=== PATIENT | male | born 1940 | race Caucasian/White ===

== ENCOUNTER 2018-03-21 10:54 | Observation (INO) | payer MEDICARE ==
[2018-03-21 11:27] LABS: Hematocrit 41 % (42-52); Hemoglobin 13.7 g/dl (14.0-18.0); Mean Corpuscular HGB Conc 33 g/dl (31-36); Mean Corpuscular Hemoglobin 30 pg (27-31); Mean Corpuscular Volume 91 fL (80-94); Platelet Count 141 10^3/ul (150-450); Red Blood Count 4.52 10^6/ul (4.00-5.40); Red Cell Distribution Width 14 % (10.5-15); White Blood Count 11.2 10^3/ul (3.5-10.8)
[2018-03-21] MEDS ORDERED: NS 0.9% 1000 ML* 1,000 ML IV ONE ×2 (11:35→18:37)
[2018-03-21 11:42] LABS: EGFR Non-African American 82.7 (>60)
--- NOTE | 2018-03-21 12:10 | ED ---
Abdominal Pain/Male - HPI Summary HPI Summary: This patient is a 78 year old M presenting to [facility] with a chief complaint of epigastric abdominal pain since 04:30. The patient reports that he took a pepsid but later vomited it up. The patient rates the pain 2/10 in severity. Symptoms aggravated by nothing. Symptoms alleviated by nothing. Patient reports nausea, watery diarrhea, vomiting, lightheadedness, chills. Patient denies fever or changes to diet. Patient denies being around anyone who is sick. Patient notes he had lymphoma and a tumor removed from his abdomen in 2011. - History of Current Complaint Chief Complaint: EDZoieuseaVomitFemi Stated Complaint: VOMITING/DIARRHEA Time Seen by Provider: 03/21/18 11:35 Hx Obtained From: Patient Onset/Duration: Sudden Onset, Lasting Hours - 7 hours, Still Present Timing: Constant Severity Initially: Mild Severity Currently: Mild Pain Intensity: 2 Pain Scale Used: 0-10 Numeric Location: Epigastric Radiates: No Aggravating Factor(s): Nothing Alleviating Factor(s): Nothing Associated Signs And Symptoms: Positive: Nausea, Vomiting, Diarrhea. 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 LEFT ELBOW SURGERY Infectious Disease History: No Infectious Disease History: Denies: Traveled Outside the [place] in Last 30 Days - Family History Known Family History: Positive: Hypertension - Social History Alcohol Use: Occasionally Substance Use Type: Reports: None Smoking Status (MU): Former Smoker Review of Systems Positive: Chills. Negative: Fever Negative: Erythema Negative: Sore Throat Negative: Chest Pain Negative: Shortness Of Breath, Cough Positive: Abdominal Pain, Vomiting, Diarrhea, Nausea Negative: dysuria, hematuria Negative: Myalgia, Edema Negative: Rash Neurological: Negative - negative dizziness, Other - positive lightheadedness All Other Systems Reviewed And Are Negative: Yes Physical Exam - Summary Physical Exam Summary: Constitutional: Well-developed, Well-nourished, Alert. (-) Distressed Skin: Warm, Dry HENT: Normocephalic; Atraumatic Eyes: Conjunctiva normal Neck: Musculoskeletal ROM normal neck. (-) JVD, (-) Stridor, (-) Tracheal deviation Cardio: Rhythm regular, rate normal, Heart sounds normal; Intact distal pulses; The pedal pulses are 2+ and symmetric. Radial pulses are 2+ and symmetric. (-) Murmur Pulmonary/Chest wall: Effort normal. (-) Respiratory distress, (-) Wheezes, (-) Rales Abd: Soft, (+) mild epigastric tenderness, (-) Distension, (-) Guarding, (-) Rebound Musculoskeletal: (-) Edema Lymph: (-) Cervical adenopathy Neuro: Alert, Oriented x3 Psych: Mood and affect Normal Triage Information Reviewed: Yes Vital Signs On Initial Exam: Initial Vitals Temp Pulse Resp BP Pulse Ox 99.6 F 91 19 120/75 94 03/21/18 11:05 03/21/18 11:05 03/21/18 11:05 03/21/18 11:05 03/21/18 11:05 Vital Signs Reviewed: Yes Diagnostics - Vital Signs Vital Signs Temp Pulse Resp BP Pulse Ox 03/21/18 11:13 94 16 120/75 93 03/21/18 11:06 96 21 93 03/21/18 11:05 99.6 F 91 19 120/75 94 - Laboratory Lab Results: Lab Results 03/21/18 03/21/18 Range/Units 11:16 11:16 WBC 11.2 H (3.5-10.8) 10^3/ul RBC 4.52 (4.00-5.40) 10^6/ul Hgb 13.7 L (14.0-18.0) g/dl Hct 41 L (42-52) % MCV 91 (80-94) fL MCH 30 (27-31) pg MCHC 33 (31-36) g/dl RDW 14 (10.5-15) % Plt Count 141 L (150-450) 10^3/ul MPV 8.0 (7.4-10.4) um3 Sodium 139 (135-145) mmol/L Potassium 4.4 (3.5-5.0) mmol/L Chloride 107 (101-111) mmol/L Carbon Dioxide 27 (22-32) mmol/L Anion Gap 5 (2-11) mmol/L BUN 15 (6-24) mg/dL Creatinine 0.89 (0.67-1.17) mg/dL Est GFR ( Amer) 100.0 (>60) Est GFR (Non-Af Amer) 82.7 (>60) BUN/Creatinine Ratio 16.9 (8-20) Glucose 146 H (70-100) mg/dL Calcium 8.5 L (8.6-10.3) mg/dL Total Bilirubin 0.80 (0.2-1.0) mg/dL AST 20 (13-39) U/L ALT 15 (7-52) U/L Alkaline Phosphatase 66 (34-104) U/L Total Protein 5.8 L (6.4-8.9) g/dL Albumin 3.7 (3.2-5.2) g/dL Globulin 2.1 (2-4) g/dL Albumin/Globulin Ratio 1.8 (1-3) Result Diagrams: 03/21/18 11:16 03/21/18 11:16 Lab Statement: Any lab studies that have been ordered have been reviewed, and results considered in the medical decision making process. - CT CT Abd/Pelvis CT Interpretation: Positive (See Comments) - IMPRESSION: There is infiltration of fat at the root of the mesentery with multiple small masses likely adenopathy with a dominant mass measuring 2.6 x 2.0 cm. This may represent adenopathy although the possibility of sclerosing mesenteritis should BE considered. Primary or secondary mesenteric mass is not totally excluded. There is no evidence of bowel obstruction with contrast throughout the right colon. Dr. Evans has reviewed this report. CT Interpretation Completed By: Radiologist Re-Evaluation - Re-Evaluation 1st re-evaluation Re-Evaluation Time: 13:27 Change: Improved Comment: Patient reports that he feels better now. 2nd re-eval Re-Evaluation Time: 18:36 Change: Improved Comment: Discussed imaging results with patient. Abdominal Pain Fem Course/Dx - Course Course Of Treatment: This patient is a 78 year old M reporting abdominal pain, N /V/D, and lightheadedness since 04:30. CT Abd/Pelvis reveals, per radiologist, There is infiltration of fat at the root of the mesentery with multiple small masses likely adenopathy with a dominant mass measuring 2.6 x 2.0 cm. This may represent adenopathy although the possibility of sclerosing mesenteritis should BE considered. Primary or secondary mesenteric mass is not totally excluded. There is no evidence of bowel obstruction with contrast throughout the right colon. ED physician has reviewed this radiology report. Test results with no significant abnormalities. In the ED course the patient was given IV fluids and contrast. Upon re-evaluation at 13:27, pt reports he is feeling better. Upon re- eval at 18:36, discussed CT results with patient and patients temperature was 100.3 degrees F. We suspect that with the worsening diarrhea and vomiting the patient likely has gastroenteritis. Pt had a mesenteric mas removed several years ago in [place]. We suspect a recurrence of this mass. Pts family notes they would like for the patient to be admitted overnight. We discussed patient care with Dr. Gregg and they agreed to admit the patient. Pt will be admitted [place] [facility]. The patient is agreeable with this plan. - Diagnoses Provider Diagnoses: Gastroenteritis, Abdominal mass - Provider Notifications Discussed Care Of Patient With: Mauricio Gregg Time Discussed With Above Provider: 18:57 Instructed by Provider To: Admit As Inpatient Discharge - Discharge Plan Disposition: ADMITTED TO [facility] Referrals: No Primary Care Phys,NOPCP [Primary Care Provider] - - Attestation Statements Document Initiated by Scribe: Yes Documenting Scribe: Carmen Stevens Provider For Whom Scribe is Documenting (Include Credential): Tr Evans MD Scribe Attestation: Carmen Pruitt, scribed for Tr Evans MD on 03/21/18 at 1838.
[2018-03-21] MEDS ORDERED: Iohexol 300* (CONTRAST) 10 ML SDV IV ONE (12:57)
--- NOTE | 2018-03-21 14:11 | RAD ---
Indication: Abdominal pain, diarrhea and vomiting. Contrast: Administered 100.0 ml of OMNIPAQUE 300 mg/ml CT of the abdomen and pelvis was performed after IV contrast administration. Oral contrast was administered. Coronal and sagittal reconstructed images were obtained. No prior study is available for comparison. Lung bases demonstrate dependent changes. Heart demonstrates cardiomegaly without pericardial effusion. Liver is normal in size. No focal lesions or intrahepatic duct dilatation is noted. The spleen is normal in size. No adrenal masses are noted. The kidneys demonstrate symmetric nephrograms without hydronephrosis. Aorta and inferior vena cava are unremarkable. CT of the pelvis demonstrates no retroperitoneal or pelvic lymphadenopathy. Urinary bladder is unremarkable. The prostate is unremarkable. The appendix is visualized and is unremarkable. No dilated loops of bowel are noted. The gallbladder demonstrates no calcified gallstones. No dilated bowel are noted. Infiltration of fat is noted along the root of the mesentery. 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 In addition there appears to be a mass within the root of the mesentery partially encasing the mesenteric vein measuring 2.6 x 2.0 cm. The possibility of sclerosing mesenteritis should BE considered. Other etiologies of mesenteric masses are considered less likely. No evidence of bowel obstruction is noted. Contrast is noted in the right colon. Diverticulosis without definite evidence of diverticulitis. Urinary bladder is unremarkable. No hernias are noted. No free fluid is noted in the pelvis. The prostate and seminal vesicles are unremarkable. The bony structures are otherwise unremarkable. Degenerative disc disease at L3-L4 is noted. IMPRESSION: There is infiltration of fat at the root of the mesentery with multiple small masses likely adenopathy with a dominant mass measuring 2.6 x 2.0 cm. This may represent adenopathy although the possibility of sclerosing mesenteritis should BE considered. Primary or secondary mesenteric mass is not totally excluded. There is no evidence of bowel obstruction with contrast throughout the right colon.
[2018-03-21] MEDS ORDERED: Acetaminophen TAB* 325 MG PO ONE (18:37)
[2018-03-21] MEDS ORDERED: Morphine INJ* 2 MG/ML 1 ML SYRINGE (TWO MG - NEW SYRINGE VERSION) IV PRN (20:20)
[2018-03-21] MEDS ORDERED: Acetaminophen TAB* 325 MG PO PRN (20:20)
[2018-03-21] MEDS ORDERED: Ondansetron INJ* 2 MG/ML VIAL IV PRN (20:20)
[2018-03-21] MEDS ORDERED: NS 0.9% 1000 ML* 1,000 ML IV SCH (20:30)
--- NOTE | 2018-03-21 23:22 | HP ---
CC: Dr. Josué Montenegro; Dr. Sukh Peter, [phone]; Dr. Velasquez; Dr. Santana * HISTORY AND PHYSICAL: DATE OF ADMISSION: 03/21/18 PRIMARY CARE PROVIDER: Dr. Josué Montenegro, fax #[phone]. ATTENDING PHYSICIAN WHILE IN THE HOSPITAL: Hayder Larios MD * (report dictated by Karthikeyan Park NP) CONSULTING ONCOLOGIST: Dr. Velasquez. CONSULTING SURGEON: Dr. Santana. CHIEF COMPLAINT: 1. Abdominal discomfort. 2. Nausea, vomiting, diarrhea. HISTORY OF PRESENT ILLNESS: Mr. Jimenez is a 78-year-old male patient who has a history of B-cell lymphoma, his last chemotherapy was in 2011. He said he had an abdominal CT or PET scan done in May 2017, which was reported to him as normal. He is presenting to the emergency department today stating that at 4 a.m. he woke up with a sharp, central, stabbing abdominal pain similar to his previous symptoms when he sought care for his lymphoma. He states he became concerned because throughout the day any time he ate, he was having diarrhea and he is also having vomiting and nausea as well. He does state that he has been having a significant amount of nausea and vomiting throughout the day today and diarrhea, which has been watery. There has been no recent antibiotic therapy reported but he has been having chills. He felt very fatigued and weak this morning. He said he gets aches all over. He denied any respiratory symptoms such as rhinorrhea, sore throat or cough. Denied having any shortness of breath or chest pain, but he described the pain in his central abdomen as a sharp, stabbing discomfort. He states that he was concerned because he was not feeling any better. He was concerned that there may be something going on. He states he has been having throughout this entire summer, intermittent episodes of diarrhea. He states he does receive most of his care in [place], but he is interested in relocating possibly at some point to [place] for his medical care. He does have a history of B- cell lymphoma. He has a history of hypertension , hyperlipidemia, and a history of atrial fibrillation. It was found on CT imaging that he did have what appeared to be adenopathy and infiltration of the fat at the root of the mesentery. There was concern for this and the fact that his symptoms were not improving in the ED, we were asked to evaluate for admission. PAST MEDICAL HISTORY: Significant for: 1. B-cell lymphoma. 2. Hypertension. 3. Hyperlipidemia. 4. AFib. PAST SURGICAL HISTORY: He has had a vasectomy. MEDICATIONS: Home medications according to his recall include: 1. Crestor 10 mg daily. 2. Lopressor 25 mg daily. 3. Eliquis 1 tablet p.o. b.i.d. ALLERGIES TO MEDICATIONS: Include BARBITURATES. FAMILY HISTORY: His mother and father both had ME. SOCIAL HISTORY: He does not smoke, he does not drink. Surrogate decision maker is his , Chase, and his daughter. REVIEW OF SYSTEMS: There is no documented fever. He did admit to having chills , but there was no significant weight change, no double vision. There is no ear discharge. He denied having any rhinorrhea. There was no sore throat. No thyroid enlargement. Denies having any chest pain. There was no orthopnea. There was no nocturnal dyspnea. There is abdominal pain per my HPI. There was nausea. There was vomiting with diarrhea. No dysuria, no frequency. No seizure, no loss of consciousness. No pruritus and no skin ulcerations. Review of 14 systems was completed, all others negative. PHYSICAL EXAMINATION GENERAL: At this time, Mr. Jackson is a 78-year-old male patient who is sitting in the ED stretcher. He does not appear to be in any acute distress. VITAL SIGNS: Blood pressure 137/67 with a pulse of 87, respirations 18, O2 sat 96%, temperature 99.6. HEENT: Head: Atraumatic and normocephalic. Eyes: EOMs are intact. Sclerae anicteric and not pale. Throat: Oral mucosa appears to be moist. No oropharyngeal erythema. NECK: Supple. LUNGS: Clear to auscultation bilaterally. There were no wheezes, rales, or rhonchi. HEART: Sounds S1, S2. He had a regular rate and rhythm. No murmurs, rubs, or gallops. ABDOMEN: Soft, flat, nontender. Bowel sounds were present. EXTREMITIES: Pulses 2+ throughout. Again, no peripheral edema. He has 5/5 strength. NEUROLOGICAL: The patient is awake, alert, oriented x3. Tongue is midline. Outdoor Education Teacher were equal. He had no gross focal deficits. SKIN: Intact. DIAGNOSTIC STUDIES/LAB DATA: WBC of 11.2, RBC 4.52, hemoglobin 13.7, hematocrit 41, platelet count of 141,000. Sodium 139, potassium 4.4, chloride 107, bicarb 27, BUN 15, creatinine 0.89, glucose 146, total bili 0.8, AST 20, ALT 15, alk phos 66. Albumin was 3.7. He did have an abdominal pelvis CT obtained today, impression: There is infiltration of the fat at the root of the mesentry with multiple small masses, likely adenopathy with a dominant mass measuring 2.6 x 2 cm adenopathy, although a possibility of sclerosing mesenteritis should be considered. Primary or secondary mesenteric mass is not totally excluded. There is no evidence of bowel construction with contrast throughout the colon. Old medical records were reviewed. ASSESSMENT AND PLAN: Mr. Jimenez is a 78-year-old male patient coming into the ED today with complaints of nausea, vomiting and diarrhea. In addition to this , complains of sharp abdominal pain in the central abdomen. We were asked to evaluate for admission. He will be admitted under observation status for: 1. Nausea, vomiting, diarrhea. Again, I am concerned that he may have a gastroenteritis going on, on top of us finding this mass. His vomiting and nausea has been going on since a day, he does not appear to be obstructed. I will send off stool cultures and stool studies. I will send off a C. Diff as well. I am going to hold off on antibiotics currently. He has not had any fevers here. I will check him for influenza, although without respiratory symptoms, it is probably less likely. We will hydrate the patient, continue with supportive care. If he spikes a fever, I will place him on broad spectrum antibiotics. 2. Abdominal mass. Again, I am concerned that that the findings we are seeing on the CT scan may represent recurrence of his lymphoma. I did touch base with Dr. Velasquez. I also touched base with our surgeons. We need to get records from the patient's primary oncologist, Dr. Peter; again his number is [phone]. We will touch base with him tomorrow. I have placed an order to get records so that we can compare our scan with his previous scan to see if there is recurrence. Again, Dr. Velasquez has been following. 3. Hypertension. Continue meds as prescribed. 4. Hyperlipidemia. Continue Crestor. 5. Atrial fibrillation. Continue rate control with metoprolol and apixaban for the time being. 6. DVT prophylaxis. He is on apixaban. 7. Code status. Full code. 8. Fluids, electrolytes, and nutrition. He will be on a clear liquid diet. TIME SPENT: On the admission was 60 minutes, greater than half the time was spent [id number] with the patient obtaining my history and physical, other half time was spent going over the plan of care with the patient and implementing the plan of care. I did discuss the plan of care with my attending, Dr. Larios; he is in agreement. KARTHIKEYAN PARK, ISABELLA [id number]/CPS #: [id number] ARABELLA
[2018-03-21] MEDS: Apixaban* 5 MG TAB PO SCH (23:56)
[2018-03-22 06:48] LABS: ABS Basophils 0 10^3/ul (0-0.2); ABS Eosinophils 0 10^3/ul (0-0.6); ABS Lymphocytes 0.7 10^3/ul (1.0-4.8); ABS Monocytes 0.7 10^3/ul (0-0.8); ABS Neutrophils 7.9 10^3/ul (1.5-7.7); ABS Nucleated RBC 0 10^3/ul; Eosinophil % 0 % (0-6); Hematocrit 38 % (42-52); Hemoglobin 12.9 g/dl (14.0-18.0); Lymphocyte % 7.8 % (25-47); Mean Corpuscular HGB Conc 34 g/dl (31-36); Mean Corpuscular Hemoglobin 31 pg (27-31); Mean Corpuscular Volume 90 fL (80-94); Mean Platelet Volume 7.9 um3 (7.4-10.4); Nucleated Red Blood Cells % 0; Platelet Count 132 10^3/ul (150-450); Red Blood Count 4.16 10^6/ul (4.00-5.40); Red Cell Distribution Width 14 % (10.5-15); White Blood Count 9.3 10^3/ul (3.5-10.8)
[2018-03-22 06:52] LABS: INR 1.33 (0.77-1.02)
[2018-03-22 07:02] LABS: EGFR Non-African American 102.3 (>60)
--- NOTE | 2018-03-22 08:43 | PN ---
Subjective Date of Service: 03/22/18 Interval History: Denies chest pain or shortness of breath. Denies abd pain. Denies nausea or vomiting. Tolerating po food and fluids. Does report some liquid stool this AM. Family History: Unchanged from Admission Social History: Unchanged from Admission Past Medical History: Unchanged from Admission Objective Active Medications: Acetaminophen (Tylenol Tab*) 650 mg PO Q4H PRN PRN Reason: FEVER/PAIN Apixaban (Eliquis*) 5 mg PO BID [facility] Last Admin: 03/21/18 23:56 Dose: 5 mg Atorvastatin Calcium (Lipitor*) 20 mg PO DAILY [facility]; Protocol Sodium Chloride (Ns 0.9% 1000 Ml*) 1,000 mls @ 100 mls/hr IV PER RATE [facility] Last Admin: 03/21/18 23:31 Dose: 100 mls/hr Metoprolol Tartrate (Lopressor Tab*) 25 mg PO DAILY [facility] Morphine Sulfate (Morphine Inj ((Syringe))*) 2 mg IV Q4H PRN PRN Reason: PAIN - MILD Ondansetron HCl (Zofran Inj*) 4 mg IV Q6H PRN PRN Reason: NAUSEA Vital Signs - 8 hr 03/22/18 03:15 Temperature 98.8 F Pulse Rate 72 Respiratory 16 Rate Blood Pressure 106/45 (mmHg) O2 Sat by Pulse 98 Oximetry Oxygen Devices in Use Now: None Appearance: appears comfortable sitting on the edge of the bed. No acute distress Eyes: No Scleral Icterus Ears/Nose/Mouth/Throat: Clear Oropharnyx, Mucous Membranes Moist, - Neck: NL Appearance and Movements; NL JVP, Trachea Midline Respiratory: Symmetrical Chest Expansion and Respiratory Effort, Clear to Auscultation Cardiovascular: NL Sounds; No Murmurs; No JVD Abdominal: NL Sounds; No Tenderness; No Distention Extremities: No Edema, No Clubbing, Cyanosis Skin: No Rash or Ulcers Neurological: Alert and Oriented x 3 Nutrition: Taking PO's Result Diagrams: 03/22/18 06:28 03/22/18 06:28 Additional Lab and Data: Lab Results 03/21/18 03/21/18 Range/Units 11:16 11:16 WBC 11.2 H (3.5-10.8) 10^3/ul RBC 4.52 (4.00-5.40) 10^6/ul Hgb 13.7 L (14.0-18.0) g/dl Hct 41 L (42-52) % MCV 91 (80-94) fL MCH 30 (27-31) pg MCHC 33 (31-36) g/dl RDW 14 (10.5-15) % Plt Count 141 L (150-450) 10^3/ul MPV 8.0 (7.4-10.4) um3 Sodium 139 (135-145) mmol/L Potassium 4.4 (3.5-5.0) mmol/L Chloride 107 (101-111) mmol/L Carbon Dioxide 27 (22-32) mmol/L Anion Gap 5 (2-11) mmol/L BUN 15 (6-24) mg/dL Creatinine 0.89 (0.67-1.17) mg/dL Est GFR ( Amer) 100.0 (>60) Est GFR (Non-Af Amer) 82.7 (>60) BUN/Creatinine Ratio 16.9 (8-20) Glucose 146 H (70-100) mg/dL Calcium 8.5 L (8.6-10.3) mg/dL Total Bilirubin 0.80 (0.2-1.0) mg/dL AST 20 (13-39) U/L ALT 15 (7-52) U/L Alkaline Phosphatase 66 (34-104) U/L Total Protein 5.8 L (6.4-8.9) g/dL Albumin 3.7 (3.2-5.2) g/dL Globulin 2.1 (2-4) g/dL Albumin/Globulin Ratio 1.8 (1-3) Microbiology and Other Data: Microbiology 03/21/18 23:30 Influenza Types A,B Antigen - Final Nasopharyngeal Specimen received for Influenza A/B Molecular testing 03/21/18 14:20 Stool Gross Appearance - Final Stool Assess/Plan/Problems-Billing Assessment: Mr. Jimenez is a 78 y.o male with a pmhx significant for b- cell lymphoma, htn, hld, afib on anticoagulation who presented to the emergency room with nausea , vomiting and abd pain. CT of the abd and pelvis showed abdominal mass. - Patient Problems (1) Abdominal mass Status: Acute Code(s): R19.00 - INTRA-ABD AND PELVIC SWELLING, MASS AND LUMP, UNSP SITE SNOMED Code(s): 135515084 Comment: Seen by Onocology - suspect this could be related to lymphoma - no abd pain this AM, no vomiting, tolerating foods without difficulty - no signs of bowel obstructions on the CT (2) Nausea & vomiting Status: Acute Code(s): R11.2 - NAUSEA WITH VOMITING, UNSPECIFIED SNOMED Code (s): 34815628 Comment: Resolved tolerating po fluids and food (3) HTN (hypertension) Status: Acute Code(s): I10 - ESSENTIAL (PRIMARY) HYPERTENSION SNOMED Code(s) : 38960416 Comment: continue metoprolol (4) HLD (hyperlipidemia) Status: Acute Code(s): E78.5 - HYPERLIPIDEMIA, UNSPECIFIED SNOMED Code(s): 34213239 Comment: continue crestor (5) Afib Status: Acute Code(s): I48.91 - UNSPECIFIED ATRIAL FIBRILLATION SNOMED Code( s): 27533863 Comment: stable continue metoprolol and crestor (6) History of B-cell lymphoma Status: Acute Code(s): Z85.72 - PERSONAL HISTORY OF NON-HODGKIN LYMPHOMAS SNOMED Code(s): 273278579 Comment: - seen by oncology - patient will follow up with his oncologist when he returns to [place] on wednesday - for further work up of his abdominal mass - CT report and disc given to patient at discharge (7) DVT prophylaxis Status: Acute Code(s): YEK9660 - SNOMED Code(s): 700469967 Comment: Nivia (8) Full code status Status: Acute Code(s): Z78.9 - OTHER SPECIFIED HEALTH STATUS SNOMED Code(s) : 995690953 Status and Disposition: discharge home
[2018-03-22] MEDS ORDERED: Metoprolol Tartrate TAB* 25 MG PO SCH (09:00)
[2018-03-22] MEDS ORDERED: Atorvastatin* 20 MG TAB PO SCH (09:00)
[2018-03-22] MEDS: Apixaban* 5 MG TAB PO SCH (09:09)
[2018-03-22] MEDS ORDERED: Potassium Chlor TAB* 20 MEQ TAB.ER PO ONE (12:05)
[2018-03-22 14:22] VITALS: BP 117/57
--- NOTE | 2018-03-24 22:42 | DS ---
DISCHARGE SUMMARY: DATE OF ADMISSION: 03/21/18 DATE OF DISCHARGE: 03/22/18 PROVIDER: Dyana Mcclendon NP PRIMARY CARE PROVIDER: Dr. Josué Montenegro, fax number is [phone]. ATTENDING PHYSICIAN: Dr. Parish Gregg (dictated by Dyana Mcclendon NP). CONSULTING ONCOLOGIST: Dr. Velasquez. PRIMARY DIAGNOSES: 1. Abdominal pain. 2. Nausea, vomiting, diarrhea - gastroenteritis. 3. Abdominal mass. SECONDARY DIAGNOSES: 1. History of B-cell lymphoma. 2. Hypertension. 3. Hyperlipidemia. 4. Atrial fibrillation. STUDIES COMPLETED WHILE IN THE HOSPITAL: She had a CT of abdomen and pelvis, radiologist's impressio n: There is an infiltration of fat at the root of the mesentery with multiple small masses likely en dopathy with a dominant mass measuring 2.6 x 2.0 cm, which may represent endopathy, although the poss ibility of sclerosing mesenteritis should be considered, the primary or secondary mesenteric mass is not totally excluded. There is no evidence of bowel obstruction with contrast throughout the right c olon. 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 DISCHARGE MEDICATIONS: No new home medications. Continued medications. 1. Eliquis 1 tab p.o. b.i.d. 2. Crestor 10 mg p.o. daily. 3. Metoprolol 25 mg p.o. daily. HISTORY OF PRESENT ILLNESS AND HOSPITAL COURSE: Mr. Jimenez is a 78-year-old male with the past medic al history significant for atrial fibrillation, hypertension, hyperlipidemia, and history of B-cell l ymphoma, who had his last chemotherapy in 2011. He presented to the emergency department today [facility] at approximately 4 a.m. he woke up with a sharp pain, central stabbing abdominal pain similar to h is previous symptoms when he sought care for his lymphoma. He became concerned throughout the day an y time he ate, he was having diarrhea. He was also having some vomiting and nausea as well. He does report that he had a significant amount of nausea and vomiting throughout the day and diarrhea, that was watery. He denies any recent antibiotic use. He does report having chills and feeling very fat igued and weak with generalized body aches. He denied any respiratory symptoms, cough, sore throat, or congestion, shortness of breath. He denied any chest pain. He reported central abdomen pain that was sharp, stabbing discomfort and he was concerned that he was not feeling better, so he presented to the emergency room for further evaluation. While in the emergency room, he had routine lab work drawn and a CT of the abdomen and pelvis, which showed an abdominal mass. The patient was not feeling any better, so we were asked to see and evalua te him for admission. During his hospitalization, he received IV hydration. The patient had no further nausea or vomiting. He did continue to have a small amount of liquid stools. We did send the stool for C. diff, which was negative. Other stool cultures were pending at the time of discharge. At this time, Mr. Jimenez is able to tolerate p.o. and solid foods without difficulty. He denies any nausea or vomiting. He w ill be discharged home. PHYSICAL EXAM: Mr. Jimenez is stable for discharge home. Vital signs are as follows: Blood pressure 117/57, heart rate was 59, respirations 16, O2 saturation 98% on room air, temperature was 97.3. DISCHARGE PLAN: Mr. Jimenez will be discharged back home. Activity as tolerated. He should continue on a heart-healthy diet, low in fat and spicy foods. 1. I suspect he has gastroenteritis. He should stay hydrated and drink plenty of p.o. fluids. He c an resume a regular diet and advance as tolerated. 2. Abdominal mass. He was seen and evaluated by Oncology during this hospitalization, who feels merced t his abdominal mass is most likely the return of his lymphoma. He is returning to [place] on Wednesday . He should follow up with his primary oncologist in [place]. He needs to call to schedule appointm ent. He will be given a disc of his CAT scan and report to take to his primary oncologist in [place] . 3. Hypertension. He should continue on his metoprolol. 4. Hyperlipidemia. He should continue his Crestor. 5. Atrial fibrillation. He should continue on his metoprolol and Eliquis. It was stable during his hospitalization. The patient should follow up with his primary oncologist in [place] upon his return. He should call to make an appointment. He needs to bring the CT of his abdomen and pelvis with the report to his on cologist's appointment. The patient should follow up with his primary care provider in 4 to 7 days upon returning to [place]. The patient was instructed to return to the emergency room if he developed any chest pain, shortness of breath, severe worsening abdominal pain with nausea and vomiting, uncontrollable or profuse diarrh ea that is uncontrollable or symptoms of dehydration, lightheadedness, dizziness, or tachycardia. Th e patient verbalized understanding. This is a summarization of his hospitalization. If you need further details, please obtain his entir e medical record. TIME SPENT: Time spent on this discharge was approximately 60 minutes, greater than half that time w as spent with the patient discussing discharge plans and instructions. CONDITION ON DISCHARGE: Stable. DYANA MCCLENDON NP [id number]/[facility] #: [id number]
== END 2018-03-22 15:05 | disposition home or self-care (01) ==
LOC: ED 10:54 → MED 20:11
PROVIDERS: ADMIT Hospitalist; ATTEND Hospitalist
DX: R10.9 Unspecified abdominal pain (principal); R11.2 Nausea with vomiting, unspecified; R19.7 Diarrhea, unspecified; C85.10 Unspecified B-cell lymphoma, unspecified site; I10 Essential (primary) hypertension; E78.5 Hyperlipidemia, unspecified; R19.00 Intra-abdominal and pelvic swelling, mass and lump, unspecified site
CPT/HCPCS: 36415; 74177; 80048; 80053; 82272; 83605; 85025; 85027; 85610; 87040; 87045; 87046; 87077; 87425; 87493; 87899; 96374; 96375; 99285; A9270-GY; G0378; Q9967

== ENCOUNTER 2018-11-14 21:35 | Emergency (ER) | payer MEDICARE ==
--- OUTSIDE RECORDS SUMMARY | 2018-11-14 21:40 | XMS REPORT | Continuity of Care Document ---
:1940 External Reference #:[id number] Author Name Khoa Baker MD Address [address] [place] [address] Care Team Providers Name Role Phone Ayla Cooper MD Primary Care Physician Unavailable Payers Date Identification Numbers Payment Provider Subscriber Effective: Policy Number: [id number] [place] [employer] [employer] Vladimir Jimenez 2018 PayID: [id number] [address] [place] [address] Effective: 2018 Policy Number: [id number] [facility] Vladimir Jimenez PayID: [id number] [address] [place] [address] Advance Directives Description No Information Available Problems Description No Information Family History Date Family Member(s) Observation Comments General Heart Attack General Heart Disease Social History Type Date Description Comments Sex Unknown Occupation Retired Occupation Professor [employer] Tobacco Use Start: Unknown End: Former Cigarette Smoker 1 10 year history, quit Unknown Pack Daily age 34 Tobacco Use Start: Unknown Never Smoked Cigars Tobacco Use Start: Unknown End: Former Pipe Smoker, 2 year history, quit Unknown Smoked 3 Pipes Daily age 34 Smokeless Tobacco Never Used Smokeless Tobacco ETOH Use Currently rarely consumes alcohol Tobacco Use Start: Unknown End: Patient is a former Unknown smoker Smoking Status Reviewed: 11/08/18 Patient is a former smoker Allergies, Adverse Reactions, Alerts Active Allergies Reaction Severity Comments Date barbituate 11/04/2018 Medications Active Medications SIG Qnty Indications Ordering Provider Date Eliquis take 1 tablet by Unknown 5mg Tablets mouth every 12 hours Metoprolol Succinate 1/2 by mouth Unknown ER every day 25mg Tablets ER 24HR Crestor 1 by mouth every Unknown 10mg Tablets day Lorazepam 1 by mouth twice Unknown 1mg Tablets a day Immunizations Description No Information Available Vital Signs Date Vital Result Comment 11/08/2018 9:33am Weight 175.00 lb Weight 79.380 kg Height 71 inches 5'11" Height in cm's 180.3 cm BMI (Body Mass Index) 24.4 kg/m2 Results Description No Information Available Procedures Date Code Description Status 11/08/2018 54607 Nasopharyngoscopy Completed Encounters Type Date Location Provider Dx Diagnosis Office Visit 11/08/2018 Viviana,Gely Pope 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
[2018-11-14 21:50] VITALS: BP 154/98
--- NOTE | 2018-11-14 22:34 | UC ---
Epistaxis Nasal HPI - HPI Summary HPI Summary: Mr. Jimenez presented concerned with a left-sided nosebleed. He has a known pharyngeal mass and is on eliquis for atrial fibrillation and he is concerned that it's the mastoids bleeding. The bleeding was controlled by the time he got here. It started about 2 hours prior to arrival. - History of Current Complaint Chief Complaint: UCGeneralIllness Stated Complaint: NOSE BLEED Time Seen by Provider: 11/14/18 21:57 Hx Obtained From: Patient, Family/Catcher Plug Onset/Duration: Sudden Onset Timing: Constant Severity Initially: Moderate Severity Currently: None Pain Intensity: 0 Pain Scale Used: 0-10 Numeric Character: Heavy Aggravating Factor(s): Nothing Alleviating Factor(s): Pressure Associated Signs And Symptoms: Positive: Negative Related Hx: Anticoagulants - He used Afrin once several days ago - Allergies/Home Medications Allergies/Adverse Reactions: Allergies Allergy/AdvReac Type Severity Reaction Status Date / Time Barbiturates Allergy Rash Verified 11/14/18 21:50 Home Medications: Home Medications Acetaminophen [Pain Relief Extra Strength] 500 mg PO PRN 11/14/18 [History] PMH/Surg Hx/FS Hx/Imm Hx Cardiovascular History: Atrial Fibrillation Cancer History: Other - Pharyngeal mass - Surgical History Surgical History: Yes Surgery Procedure, Year, and Place: VASECTOMY. LEFT ELBOW SURGERY - Family History Known Family History: Positive: Hypertension - Social History Alcohol Use: Rare Substance Use Type: None Smoking Status (MU): Former Smoker When Did the Patient Quit Smoking/Using Tobacco: 35-40 YRS AGO - Immunization History Most Recent Influenza Vaccination: 03/2017 Most Recent Pneumonia Vaccination: 2012 Review of Systems All Other Systems Reviewed And Are Negative: Yes Physical Exam - Summary Physical Exam Summary: He is nontoxic in appearance with stable vital signs. Triage Information Reviewed: Yes Appearance: Well-Appearing Vital Signs: Initial Vital Signs Temp 97.6 F 11/14/18 21:44 Pulse 68 11/14/18 21:44 Resp 18 11/14/18 21:44 BP 154/98 11/14/18 21:44 Pulse Ox 99 11/14/18 21:44 Vital Signs Reviewed: Yes Eye Exam: Normal ENT: Positive: Hoarse voice, Other - There is a clear site of irritation and recent bleeding on the left Kiesselbach's plexus area. Neck exam: Normal Respiratory Exam: Normal Epistaxis Nasal Course/Dx - Course Course Of Treatment: The bleeding is controlled now. There is a clear site of recent bleeding in the anterior nose on the left and I felt confident that was the source of his bleeding. I gave him a clip in case it were to start again and recommended close follow-up. - Differential Dx/Diagnosis Provider Diagnosis: Nosebleed Discharge - Sign-Out/Discharge Documenting (check all that apply): Patient Departure All imaging exams completed and their final reports reviewed: No Studies - Discharge Plan Condition: Stable Disposition: HOME Patient Education Materials: Nosebleed (ED) Referrals: No Primary Care Phys,NOPCP [Primary Care Provider] - Additional Instructions: Please go to the emergency department of it recurs and you can't stop it easily. - Billing Disposition and Condition Condition: STABLE Disposition: Home
== END 2018-11-14 22:20 | disposition home or self-care (01) ==
LOC: UCEAST 21:35
DX: R04.0 Epistaxis (principal); J39.2 Other diseases of pharynx; I48.91 Unspecified atrial fibrillation; Z79.01 Long term (current) use of anticoagulants; Z88.8 Allergy status to other drugs, medicaments and biological substances; Z87.891 Personal history of nicotine dependence
CPT/HCPCS: 99211; G0463

== ENCOUNTER 2018-11-25 10:00 | Day surgery (SDC) | payer MEDICARE ==
[~2018-11-25 10:00] MED LIST: Buffered Lidocaine 1% SYRIN* 1 ML/SYRINGE INTRADERM ONE; Famotidine IV* 10 MG/ML 2 ML (20 mg) IV ONE; Lactated Ringers 1000 ML Bag* 1,000 ML IV SCH
[2018-11-25] MEDS ORDERED: Buffered Lidocaine 1% SYRIN* 1 ML/SYRINGE INTRADERM ONE (10:15)
[2018-11-25] MEDS ORDERED: Famotidine IV* 10 MG/ML 2 ML (20 mg) ONE (10:15)
[2018-11-25] MEDS ORDERED: Midazolam* 1 MG/ML 2 ML VIAL (2 MG) ONE (10:47)
[2018-11-25] MEDS ORDERED: fentaNYL* 50 MCG/ML 2 ML VIAL (100 MCG VIAL) ONE (10:47)
[2018-11-25] MEDS ORDERED: KETAMINE HCL* 50 MG/ML 10 ML VIAL ONE (10:47)
[2018-11-25] MEDS ORDERED: Oxymetazoline 0.05% NASAL SPR* 15 ML BTL ONE (10:59)
[2018-11-25] MEDS ORDERED: Lidocaine 4% TOPICAL* 50 ML TOP.SOLN ONE (11:00)
[2018-11-25] MEDS ORDERED: Lidocaine 2% JELLY* 6 ML JELLY TOPICAL ONE (11:00)
[2018-11-25] MEDS ORDERED: fentaNYL* 50 MCG/ML 2 ML VIAL (100 MCG VIAL) IV PRN (12:09)
[2018-11-25] MEDS ORDERED: DiMENhydriNATE IV* 50 MG/ML VIAL IV PUSH PRN (12:09)
[2018-11-25] MEDS ORDERED: PROCHLORPERAZINE INJ 5 MG/ML 2 ML VIAL IV PRN (12:09)
[2018-11-25] MEDS ORDERED: Naloxone* 0.4 MG/ML 1 ML VIAL IV PRN (12:09)
[2018-11-25] MEDS ORDERED: oxyCODONE/Acetamin 5/325 MG* TAB PO PRN (12:09)
[2018-11-25] MEDS ORDERED: Propofol* 10 MG/ML 20 ML BTL ONE (12:55)
[2018-11-25] MEDS ORDERED: Ondansetron INJ* 2 MG/ML VIAL ONE (12:55)
[2018-11-25] MEDS ORDERED: Dexamethasone IV* 4 MG/ML 1 ML (4 MG) ONE (12:55)
[2018-11-25] MEDS ORDERED: Lidocaine 2% PF * 5 ML VIAL ONE (12:56)
[2018-11-25] MEDS ORDERED: oxyCODONE/Acetamin 5/325 MG* TAB ONE (14:12)
[2018-11-25 14:33] VITALS: BP 157/87
--- NOTE | 2018-11-25 17:06 | OP ---
DATE OF OPERATION: 11/25/18 - MERGED WITH [facility] DATE OF : 40 SURGEON: Khoa Baker MD PROFILE SAW SETUP OPERATOR: None. ANESTHESIA: General. PRE-OP DIAGNOSES: 1. Left cheek mass. 2. Nasopharyngeal mass. POST-OP DIAGNOSES: 1. Left cheek mass. 2. Nasopharyngeal mass. OPERATIVE PROCEDURE: FNA left cheek mass and endoscopic biopsies of nasopharyngeal mass. ESTIMATED BLOOD LOSS: Less than 50 cc. SPECIMENS: 1. FNA left cheek mass. 2. Biopsies of the nasopharynx. INDICATIONS: This is a 78-year-old male who recently moved to the area with a history of non-Hodgkin's lymphoma and a known enlarging nasopharyngeal mass. The patient was also incidentally noted to have a left cheek mass. Biopsy was recommended when the patient was living in [place], but he deferred until getting settled locally. DESCRIPTION OF PROCEDURE: He presented to the operating room on 11/25/18. General anesthesia was induced and LMA was placed. Time-out was performed. The left cheek mass was addressed first. A 23-gauge needle was used make a single pass through the mass. The cytopathologist came to the room and assessed this specimen for adequacy. It was adequate and no additional passes were made. Both nasal cavities were then decongested with Afrin and lidocaine. A 0-degree rigid endoscope was used to provide visualization of the nasopharynx. Biopsies were taken. A touch prep was performed. It was felt to be most consistent with lymphoma and so tissue was set aside for flow cytometry and additional tissue placed in formalin for histologic evaluation. A bipolar and ultimately monopolar suction Bovie cautery were used to achieve hemostasis of the raw biopsy edges of the nasopharyngeal mass. Once adequate hemostasis had been achieved, the patient was returned to the care of the anesthesiologist, extubated and delivered to the PACU in stable condition. [id number]/[facility] #: [id number] [facility] CENT[facility]
== END 2018-11-25 15:38 | disposition home or self-care (01) ==
LOC: OR 10:00
PROVIDERS: ATTEND Otolaryngology
DX: C85.81 Other specified types of non-Hodgkin lymphoma, lymph nodes of head, face, and neck (principal); D10.39 Benign neoplasm of other parts of mouth; I48.91 Unspecified atrial fibrillation; Z87.891 Personal history of nicotine dependence; F41.9 Anxiety disorder, unspecified; E78.5 Hyperlipidemia, unspecified
CPT/HCPCS: 88172; 88173; 88184; 88187; 88188; 88189; 88305; 88333; 88341; 88342; 88360; 88377; A9270-GY; J1100; J2250; J2405; J2704; J3010

== ENCOUNTER 2018-12-13 05:47 | Day surgery (SDC) | payer MEDICARE ==
[~2018-12-13 05:47] MED LIST changes: -Famotidine IV* 10 MG/ML 2 ML (20 mg) IV ONE; -Lactated Ringers 1000 ML Bag* 1,000 ML IV SCH
[2018-12-13] MEDS ORDERED: Lactated Ringers 1000 ML Bag* 1,000 ML IV SCH (06:00)
[2018-12-13] MEDS ORDERED: Famotidine IV* 10 MG/ML 2 ML (20 mg) IV ONE (06:00)
[2018-12-13] MEDS ORDERED: ceFAZolin 2 GM PREMIX in ORs 2 GM/50 ML BAG IVPB ONE (06:11)
[2018-12-13] MEDS ORDERED: Famotidine IV* 10 MG/ML 2 ML (20 mg) ONE (06:11)
[2018-12-13] MEDS ORDERED: fentaNYL* 50 MCG/ML 2 ML VIAL (100 MCG VIAL) ONE (07:07)
[2018-12-13] MEDS ORDERED: Propofol* 10 MG/ML 20 ML BTL ONE (07:07)
[2018-12-13] MEDS ORDERED: Midazolam* 1 MG/ML 5 ML VIAL (5 MG) ONE (07:07)
[2018-12-13] MEDS ORDERED: Dexamethasone IV* 4 MG/ML 1 ML (4 MG) ONE (07:07)
[2018-12-13] MEDS ORDERED: Lidocaine 2% PF * 5 ML VIAL ONE (07:07)
[2018-12-13] MEDS ORDERED: Ondansetron INJ* 2 MG/ML VIAL ONE (07:07)
[2018-12-13] MEDS ORDERED: Lidocaine 1% INJ* 10 MG/ML 30 ML SDV ONE (07:12)
[2018-12-13] MEDS ORDERED: Ondansetron INJ* 2 MG/ML VIAL IV PRN (07:24)
[2018-12-13] MEDS ORDERED: Naloxone* 0.4 MG/ML 1 ML VIAL IV PRN (07:24)
[2018-12-13] MEDS ORDERED: fentaNYL* 50 MCG/ML 2 ML VIAL (100 MCG VIAL) IV PRN (07:24)
[2018-12-13] MEDS ORDERED: Ketorolac INJ* 30 MG/ML 1 ML VIAL ONE (08:03)
[2018-12-13] MEDS ORDERED: Acetaminophen TAB* 325 MG PO PRN (08:23)
[2018-12-13] MEDS ORDERED: Ibuprofen TAB* 400 MG PO PRN (08:24)
--- NOTE | 2018-12-13 08:36 | BRIEFOPN ---
Brief Operative Note - Surgery Procedures: PRE/POSTOP DX: B CELL LYMPHOMA PROC: POWERPORT PLACEMENT RIGHT SUBCLAVIAN SURG: JOSHUA ANES: LOCAL/MAC; TOAL EBL: MIN IVF: CRYSTALLOID SPEC: NONE DRAIN: NONE COMPL: NONE COND: STABLE TO RR.
[2018-12-13 09:22] VITALS: BP 146/85
--- NOTE | 2018-12-13 20:49 | OP ---
CC: Aaron Velasquez MD; Ayla Cooper MD* OPERATIVE REPORT: DATE OF OPERATION: 12/13/18 - [facility] DATE OF : 40 SURGEON: Armando Chambers MD ENDBAND CUTTER HAND: None. ANESTHESIOLOGIST: Percy Cline MD ANESTHESIA: Local MAC. PRE-OP DIAGNOSIS: B-cell lymphoma. PRE-OP DIAGNOSIS: B-cell lymphoma. OPERATIVE PROCEDURE: Placement of right subclavian central venous catheter with subcutaneous port. ESTIMATED BLOOD LOSS: Minimal. IV FLUID: Crystalloid. SPECIMENS: None. DRAINS: None. COMPLICATIONS: None. COUNTS: Instrument, needles, and sponge counts correct. DESCRIPTION OF PROCEDURE: The patient was brought to the operating room and placed on the table supine. Sequential compression devices were placed on both lower extremities. He was positioned and padded appropriately and then prepped and draped in the usual sterile fashion and appropriate intravenous antibiotics were administered. After time-out was performed, local anesthetic was infiltrated for a right subclavian approach. The right subclavian vein was cannulated on first pass with the 18-gauge needle and a guidewire was positioned in the superior vena cava under fluoroscopic guidance. Additional local anesthetic was then infiltrated into the upper right chest to create the subcutaneous pocket. A transverse incision was created and subcutaneous fat was divided with cautery, elevating it to create a pocket. Counterincision was made at the guidewire insertion site and the 8-Yoruba PowerPort was back tunneled from this site to the pocket. Next, a peel-away sheath and dilator were advanced over the guidewire and into the superior vena cava confirming its position under fluoroscopy. The guidewire was removed and the catheter was advanced into the superior vena cava. The peel-away sheath was removed. The tip of the catheter was visualized at the atriocaval junction. The catheter was cut to approximately 25 cm and connected to the PowerPort. This was placed into the pocket and sutured to the chest wall with a single 2-0 Prolene suture. The port was accessed, it roxann and flushed easily and was flushed with heparinized saline. Both incisions were closed in 2 layers with 3-0 Vicryl for the subcutaneous tissue, 4-0 Monocryl for the skin in subcuticular fashion. Steri- Strips were applied on both sides with Tegaderm dressing to cover. The patient tolerated the procedure well and was transferred to Recovery in stable condition. [id number]/[facility] #: [id number] ARABELLA
== END 2018-12-13 09:21 | disposition home or self-care (01) ==
LOC: OR 05:47
PROVIDERS: ATTEND Surgery
DX: C85.81 Other specified types of non-Hodgkin lymphoma, lymph nodes of head, face, and neck (principal); I34.0 Nonrheumatic mitral (valve) insufficiency; I48.91 Unspecified atrial fibrillation; Z87.891 Personal history of nicotine dependence; F41.9 Anxiety disorder, unspecified
CPT/HCPCS: 76000; C1788; J0690; J1100; J1642; J1885; J2250; J2405; J2704; J3010